=== PATIENT | female | born 1945 | race Caucasian/White ===

== ENCOUNTER 2016-09-17 10:54 | Emergency (ER) | payer OTHER ==
[~2016-09-17] VITALS: Ht 157.5 cm; Wt 80.4 kg
[~2016-09-17 10:54] MED LIST: Coumadin,Jantoven PO; Desyrel PO; Hydrodiuril,Oretic,E PO; OxyCONTIN PO; Toprol XL PO; VERELAN 360 MG360 MG PO; ZOCOR20 MG PO; [UNRECOGNIZED DRUG - OTHER] PO; oxyCODONE PO
[2016-09-17 12:13] LABS: HEMATOCRIT 42.8 % (36.0-46.0); MCH 31.2 PG (29.0-34.0); MEAN PLAT.VOLUME 11.5 uM^3 (9.5-12.4); PLATELET COUNT 130 K/uL (156-360); RBC DIS.WIDTH-CV 12.6 % (11.8-14.6); RBC DIS.WIDTH-SD 40.5 % (39-53); RED BLOOD COUNT 4.81 M/uL (3.80-5.20); WHITE BLOOD COUNT 4.9 K/uL (4.1-10.2)
[2016-09-17 12:24] LABS: CHLORIDE 106 mEq/L (99-109); POTASSIUM 3.8 mEq/L (3.7-5.4); SODIUM 140 mEq/L (136-147)
[2016-09-17 12:26] LABS: GLUCOSE 101 mg/dL (70-99)
[2016-09-17 12:27] LABS: ANION GAP 10 MEQ/L (2-14)
[2016-09-17 12:30] LABS: GFR ESTIMATE (CALCULATED) > 59 mL/min/
[2016-09-17 12:31] LABS: UREA NITROGEN (BUN) 18 mg/dL (9-23)
[2016-09-17 12:36] LABS: ADD MIUA? YES; BILIRUBIN NEGATIVE; BLOOD NEGATIVE; COLOR YELLOW ((YELLOW)); GLUCOSE (STRIP) NEGATIVE; KETONES NEGATIVE; LEUKOCYTES SMALL; NITRITE NEGATIVE; PROTEIN (STRIP) NEGATIVE; SPECIFIC GRAVITY 1.011 (1.000-1.030)
[2016-09-17] MEDS ORDERED: HYDROCHLOROTH12.5 M3 PO (12:53)
[2016-09-17] MEDS ORDERED: ANTIVERT12.5 MG PO (12:54)
[2016-09-17 12:55] LABS: BACTERIA RARE; CASTS NONE SEEN /LPF; CRYSTALS NONE SEEN; EPITHELIAL CELLS 1+; MUCUS RARE; RED BLOOD CELLS RARE /HPF (0-5); UCUL ADDED? NO; WHITE BLOOD CELLS 0-5 /HPF (0-5)
[2016-09-17] MEDS ORDERED: MECLIZINE HCL25 MG PO (13:06)
[2016-09-17 13:42] VITALS: BP 156/74
== END 2016-09-17 14:08 | disposition home or self-care (01) ==
LOC: EME 10:54
PROVIDERS: Emergency Medicine
DX: R42 Dizziness and giddiness (principal); I10 Essential (primary) hypertension
CPT/HCPCS: 80048; 81003; 85027; 99281; 99284; J2405; J7030